=== PATIENT | male | born 1990 | race American Indian/Alaskan Native ===

== ENCOUNTER 2017-01-21 00:04 | Emergency (ER) | payer SELFPAY ==
[2017-01-21 00:59] VITALS: BMI 23.5
[2017-01-21 01:02] VITALS: BP 118/77; PULSE 93; RESP 18; TEMP 98.5; O2SAT 100
--- NOTE | 2017-01-21 02:01 | ED PDOC ---
Arrival/HPI - General Chief Complaint: Abnormal Skin Integrity Time Seen by Provider: 01/21/17 01:45 Historian: Patient - History of Present Illness Narrative History of Present Illness (Text): 01/21/17 01:46 27 y/o male, pmh including renal stone, nkda, c/o lt. buttock abscess and pain x 3 days. Pt. stated that it was a small pimple, been more painful and swelling for the past 2 days, no fever or chills, painful to seat, no nausea or vomiting, no palpitation, no night sweat, no dizziness, no other medical or psychological complaints. Past Medical History - Provider Review Nursing Documentation Reviewed: Yes - Infectious Disease Hx of Infectious Diseases: None - Cardiac Hx Cardiac Disorders: Yes Hx Hypertension: Yes - Pulmonary Hx Respiratory Disorders: No - Neurological Hx Neurological Disorder: No - HEENT Hx HEENT Disorder: No - Renal Hx Renal Disorder: No - Endocrine/Metabolic Hx Endocrine Disorders: No - Hematological/Oncological Hx Blood Disorders: No - Integumentary Hx Dermatological Disorder: No - Musculoskeletal/Rheumatological Hx Musculoskeletal Disorders: No - Gastrointestinal Hx Gastrointestinal Disorders: No - Genitourinary/Gynecological Hx Genitourinary Disorders: No - Psychiatric Hx Psychophysiologic Disorder: No Hx Substance Use: No - Anesthesia Hx Anesthesia: No Family/Social History - Physician Review Nursing Documentation Reviewed: Yes Family/Social History: Unknown Family HX Smoking Status: Current Some Days Smoker Hx Alcohol Use: Yes (Social drinker on the weekends) Frequency of alcohol use: Socially Hx Substance Use: No Allergies/Home Meds Allergies/Adverse Reactions: Allergies No Known Allergies Allergy (Verified 10/27/15 10:30) Review of Systems - Review of Systems Constitutional: absent: Fatigue, Fevers Eyes: absent: Vision Changes ENT: absent: Hearing Changes Respiratory: absent: Cough Cardiovascular: absent: Chest Pain Gastrointestinal: absent: Abdominal Pain, Diarrhea, Nausea, Vomiting, Appetite Changes Skin: Rash, Skin Lesions, Abscess. absent: Pruritis, Laceration, Ulcer, Cellulitis Psychiatric: absent: Anxiety, Depression, Suicidal Ideation Physical Exam Vital Signs Reviewed: Yes Vital Signs Temp Pulse Resp BP Pulse Ox 01/21/17 01:01 98.5 F 93 H 18 118/77 100 Temperature: Afebrile Blood Pressure: Normal Pulse: Regular Respiratory Rate: Normal Appearance: Positive for: Well-Appearing, Non-Toxic, Comfortable Pain Distress: Moderate Mental Status: Positive for: Alert and Oriented X 3 - Systems Exam Head: Present: Atraumatic, Normocephalic Pupils: Present: PERRL Extroacular Muscles: Present: EOMI Conjunctiva: Present: Normal Mouth: Present: Moist Mucous Membranes Neck: Present: Normal Range of Motion Respiratory/Chest: Present: Clear to Auscultation, Good Air Exchange. No: Respiratory Distress, Accessory Muscle Use Cardiovascular: Present: Regular Rate and Rhythm, Normal S1, S2. No: Murmurs Abdomen: Present: Normal Bowel Sounds. No: Tenderness, Distention, Peritoneal Signs Back: Present: Normal Inspection Upper Extremity: Present: Normal Inspection. No: Cyanosis, Edema Lower Extremity: Present: Normal Inspection, Capillary Refill < 2 s. No: Edema Neurological: Present: GCS=15, Speech Normal Skin: Present: Warm, Dry, Rashes (lt. gluteal region: visible lt. gluteal abscess approx. [id number] with mild fluctuant and abrasion, no cellulitis or streaking, no ulcer, no regional lymphepanty, FROM without limitation, sensation intact, motor 5/5. ), Normal Color Psychiatric: Present: Alert, Oriented x 3, Normal Insight, Normal Concentration Medical Decision Making ED Course and Treatment: 01/21/17 02:16 -keflex, bactrim ds, toradol IM -sensation intact, motor 5/5, wound irrigate with normal saline, clean with betadine, 1% lidocaine with 1.5cc injected locally, #11 blade made 1cm incision , approx. 3cc of purulant discharge and removed 4 abscess sac from the wound, iodofoam packing inserted, hemostasis obtained, bacitracin and gauze dressing, sensation intact, motor 5/5, less than 2cc of blood drained. -Pt. feels much better now, will discharge home. -Discharge home with keflex, bactrim ds, ibuprofen, keep the dressing and packing dry and clean for 2 days, dressing and packing needs to be changed in 2 days, return to the ER in 2 days for wound check and dressing change, follow up with your own pmd and general surgeon within 2 days, return to the ER for any new or worsening signs or symptoms. - PA / COMMISSIONING MANAGER / Resident Statement MD/DO has reviewed & agrees with the documentation as recorded. Disposition/Present on Arrival - Present on Arrival Any Indicators Present on Arrival: No History of DVT/PE: No History of Uncontrolled Diabetes: No Urinary Catheter: No History of Decub. Ulcer: No History Surgical Site Infection Following: None - Disposition Have Diagnosis and Disposition been Completed?: Yes Diagnosis: Abscess Disposition: HOME/ ROUTINE Disposition Time: : Patient Plan: Discharge Condition: IMPROVED Additional Instructions: Discharge home with keflex, bactrim ds, ibuprofen, keep the dressing and packing dry and clean for 2 days, dressing and packing needs to be changed in 2 days, return to the ER in 2 days for wound check and dressing change, follow up with your own pmd and general surgeon within 2 days, return to the ER for any new or worsening signs or symptoms. Prescriptions: Sulfamethoxazole/Trimethoprim [Bactrim Ds Tablet] 1 each PO BID #20 tablet Cephalexin [Keflex] 500 mg PO QID #40 capsule Ibuprofen [Motrin Tab] 800 mg PO TID PRN #30 tab PRN Reason: Other Referrals: Kiran Dawson MD [Staff Provider] - [place] up [place] [facility] [place] - Follow up with primary Forms: WORK NOTE
[2017-01-21] MEDS ORDERED: Tmp-Smz 800 mg-160 mg DS Tab PO STA (02:11)
== END 2017-01-21 03:06 | disposition home or self-care (01) ==
LOC: ED 00:04
DX: L02.31 Cutaneous abscess of buttock (principal); F17.210 Nicotine dependence, cigarettes, uncomplicated
CPT/HCPCS: 10060; 96372; 99282; J1885

== ENCOUNTER 2017-01-23 18:31 | Emergency (ER) | payer SELFPAY ==
[2017-01-23 18:31] VITALS: BMI 23.5
[2017-01-23 18:47] VITALS: BP 109/71; PULSE 75; RESP 16; TEMP 97.9
--- NOTE | 2017-01-23 19:11 | ED PDOC ---
Arrival/HPI - General Chief Complaint: Wound Check Time Seen by Provider: 01/23/17 18:49 Historian: Patient - History of Present Illness Narrative History of Present Illness (Text): 01/23/17 19:00 This 27 yo male presents to this ED for packing removal and wound recheck. Patient stated he had I&D x 2 days ago, and he was prescribed ABX. Left buttock wound has improved. Denies fever or rectal pain. Past Medical History - Provider Review Nursing Documentation Reviewed: Yes - Infectious Disease Hx of Infectious Diseases: None - Cardiac Hx Cardiac Disorders: Yes Hx Hypertension: Yes - Pulmonary Hx Respiratory Disorders: No - Neurological Hx Neurological Disorder: No - HEENT Hx HEENT Disorder: No - Renal Hx Renal Disorder: No - Endocrine/Metabolic Hx Endocrine Disorders: No - Hematological/Oncological Hx Blood Disorders: No - Integumentary Hx Dermatological Disorder: No - Musculoskeletal/Rheumatological Hx Musculoskeletal Disorders: No - Gastrointestinal Hx Gastrointestinal Disorders: No - Genitourinary/Gynecological Hx Genitourinary Disorders: No - Psychiatric Hx Psychophysiologic Disorder: No Hx Substance Use: No - Anesthesia Hx Anesthesia: No Family/Social History - Physician Review Nursing Documentation Reviewed: Yes Family/Social History: No Known Family HX Smoking Status: Current Some Days Smoker Hx Alcohol Use: Yes (Social drinker on the weekends) Frequency of alcohol use: Socially Hx Substance Use: No Allergies/Home Meds Allergies/Adverse Reactions: Allergies No Known Allergies Allergy (Verified 01/23/17 18:45) Review of Systems - Review of Systems Constitutional: Normal. absent: Fatigue, Weight Change, Fevers Eyes: Normal ENT: Normal Respiratory: Normal Cardiovascular: Normal Gastrointestinal: Normal Genitourinary Male: Normal Musculoskeletal: Normal Skin: Other (wound check) Neurological: Normal Endocrine: Normal Hemo/Lymphatic: Normal Psychiatric: Normal Physical Exam Vital Signs Temp Pulse Resp BP Pulse Ox 01/23/17 19:15 16 98 01/23/17 18:45 97.9 F 75 16 109/71 97 Temperature: Afebrile Blood Pressure: Normal Pulse: Regular Respiratory Rate: Normal Appearance: Positive for: Well-Appearing, Non-Toxic, Comfortable Pain Distress: None Mental Status: Positive for: Alert and Oriented X 3 - Systems Exam Head: Present: Atraumatic, Normocephalic Pupils: Present: PERRL Extroacular Muscles: Present: EOMI Conjunctiva: Present: Normal Mouth: Present: Moist Mucous Membranes Upper Extremity: Present: Normal Inspection, Normal ROM, Neurovascularly Intact , Capillary Refill < 2s Lower Extremity: Present: Normal Inspection, Normal ROM Neurological: Present: GCS=15, CN II-XII Intact, Speech Normal, Motor Func Grossly Intact, Normal Sensory Function, Normal Cerebellar Funct, Gait Normal, Memory Normal Skin: Present: Warm, Dry, Normal Color, Other ((+) left buttock wound with packing in place. No drainage, bleeding. Minimal tenderness. Nocellulitis or fluctuance.). No: Rashes Lymphatic: No: Inguinal Adenopathy Psychiatric: Present: Alert, Oriented x 3, Normal Insight, Normal Concentration Medical Decision Making ED Course and Treatment: 01/23/17 19:13 Re-evaluation. Patient feels better. Discussed results and plan with patient who expresses understanding. All questions answered and there is agreement with the plan to discharge home with instructions. Patient stable for discharge. Return if symptoms persist or worsen Re-evaluation Time: 19:13 Reassessment Condition: Re-examined, Improved - Procedure PROCEDURE NOTE (Text): 01/23/17 20:18 PROCEDURE: packing removal and wound dressing. Performed by the emergency provider Consent: Informed consent, after discussion of the risks, benefits, and alternatives to the procedure was obtained. Timeout: A timeout to verify the correct patient, procedure, and site was performed.Procedure Site: left buttock Indication: wound check and packing removal Preparation: wound was clean with Betadine Procedure: packing was removed Post-procedure: The patient tolerated the procedure well with no immediate complications Disposition/Present on Arrival - Present on Arrival Any Indicators Present on Arrival: No History of DVT/PE: No History of Uncontrolled Diabetes: No Urinary Catheter: No History of Decub. Ulcer: No History Surgical Site Infection Following: None - Disposition Have Diagnosis and Disposition been Completed?: Yes Diagnosis: Encounter for wound re-check, Encounter for abscess packing removal Disposition: HOME/ ROUTINE Disposition Time: 19:08 Patient Plan: Discharge Condition: GOOD Discharge Instructions (ExitCare): Abscess Incision and Drainage (ED) Additional Instructions: Call private doctor for wound check in 7 days. Continue with antibiotic as instructed. Return to emergency if wound becomes painful, redness or drainage Referrals: PCP,NO [Primary Care Provider] - Follow up with primary [facility] [Outside] - Follow up with primary
[2017-01-23 19:19] VITALS: O2SAT 98
== END 2017-01-23 19:19 | disposition home or self-care (01) ==
LOC: ED 18:31
DX: Z48.01 Encounter for change or removal of surgical wound dressing (principal)